=== PATIENT | female | born 1955 ===

== ENCOUNTER 2019-06-02 11:55 | Outpatient (CLI) | payer MEDICAID ==
[2019-06-02] MEDS ORDERED: gadopentetate dimeglumine 10 MMOL/20 ML syringe IV ONE (20:20)
== END 2019-06-02 23:59 | disposition home or self-care (01) ==
LOC: RAD 11:55
PROVIDERS: ATTEND Internal Medicine
DX: R60.0 Localized edema (principal); M79.651 Pain in right thigh; Z96.643 Presence of artificial hip joint, bilateral
CPT/HCPCS: 73723; A9579